=== PATIENT | female | born 1955 | race Caucasian/White ===

== ENCOUNTER 2025-05-26 10:28 | Observation (INO) ==
--- NOTE | 2025-05-26 10:55 | ED.PDOC ---
General HPI ED Provider: Dr. NORBERTO WAYNE MD Chief Complaint: Non-specific Complaint Stated Complaint: Patient accidentally injected 60 units of NovoLog instead of 10 units approximately 30 to 45 minutes ago, states she does feel little bit shaky and lightheaded but is awake alert. Blood sugar here in the ER is 158. Patient denies any severe chest pain, shortness of breath, sweating, abdominal pain, nausea, vomiting Time Seen by Provider: 05/26/25 10:45 Mode of Arrival: Walk-In Information Source: Patient Exam Limitations: No limitations Nursing and Triage Documentation Reviewed and Agree: Yes Opioid Naive vs. Tolerant Does Patient Take Opioids?: Yes Is Patient Opioid Naive?: No What is Opioid Naive?: *Opioid Naive implies the patient is not already taking opioids or not chronically receiving opioids on a daily basis. *PRN dosing is not "usually" associated with tolerance. *Patients are at higher risk of over-sedation and aspiration. Is Patient Opioid Tolerant?: Yes What is Opioid Tolerant?: *Opioid Tolerance implies less than the expected response to an opioid. *Acquired tolerance is defined by the patient taking 60mg of oral morphine daily (or equianalgesic dose of another opioid) for 1 week or more. *Often associated with chronic pain. *May take more than usual dose to achieve desired pain control. Review of Systems Review Of Systems Constitutional: Reports No symptoms PFSH PFS Medical History (Updated 05/26/25 @ 15:04 by SHERRY VENEGAS RN) Diabetes mellitus E11.9 - Type 2 diabetes mellitus without complications (ICD-10) Cancer Anal Cancer 2013 C80.1 - Malignant (primary) neoplasm, unspecified (ICD-10) Social History (Updated 05/26/25 @ 15:05 by SHERRY VENEGAS RN) Smoking and tobacco status: Current every day smoker Surgical History (Updated 05/26/25 @ 15:04 by SHERRY VENEGAS RN) History of appendectomy Z90.49 - Acquired absence of other specified parts of digestive tract (ICD- 10) Physical Exam Physical Exam Appearance: Reports Well-appearing Respiratory: Reports Airway patent Cardiovascular: Reports RRR GI/: Reports Soft and Nontender Musculoskeletal: Reports Normal strength Neurological: Reports Sensation intact, Motor intact, Alert and Oriented Physician Progress Note Physician Progress Note: Pt presented w/ accidental injecting 60 units of NovoLog instead of 10 units Nursing notes reviewed. Vital signs reviewed. Reviewed Past medical history as documented above as well as listed surgical, family, and social history. Medication list reviewed. IV + monitor + pulse ox ABCD's assessed and addressed as necessary DDx includes: Records reviewed: Independent historians used: Labs/imaging studies ordered/reviewed/significant findings: CBC unremarkable, BMP showed a potassium of 3.4, normal kidney function, glucose 39.6 Previous labs/imaging studies reviewed: Independent interpretation of tests ordered: Therapies prescribed: Response to therapies/Re-evaluation: Patient given 2 cups of orange juice, blood sugar rechecked at 1125 and was 154, stable from 158, will watch another hour and D/C if stable. 1225, patient slightly symptomatic feels a little agitated, anxious, shaky but is awake, alert, oriented, blood sugar was rechecked and less than 50. Will place an IV. Give 2 more cups of orange juice, dextrose tablets, food. Will give 1 mg of IV glucagon and 4 mg of Zofran. Discussed with poison control at 1230, case #[id number], recommend monitoring for 6 hours from accidental overdose, dextrose boluses to keep sugar above 100 and/or dextrose tablets. Patient feeling better at 1235 after getting orange juice. Lab glucose 37, recheck here was 77 at 1255, will give 5 tabs of dextrose and lunch. Recheck of sugar at 1315 was less than 50, patient was eating lunch, will give 1 amp of D50. With several hypoglycemic episodes, patient from out of town will observation overnight for continued glucose monitor management. Discussed with Maria Guadalupe Garcia at 1318 and she accepts observation admission Consultations Provider: Maria Guadalupe Garcia at 1318 accepts admission Consultations Non-Provider: Social determinants of health: Final Dx: Hypoglycemia secondary to unintentional short acting NovoLog overdose Disposition/Rx Discharged with: Observation admission Critical Care Note Critical Care Note Total Critical Care Time (mins): 45 Comments: Patient had acute impairment of nervous system with recurrent severe life- threatening hypoglycemic episodes, high probability of imminent, life- threatening deterioration unless acted upon, patient had multiple glucose measurements, dextrose tabs, amp of D50 given. Total critical care time was exclusive of separately billed procedures. Time was spent with the patient, multiple or examinations, reviewing labs, discussing with patient and , discussing with nursing staff, arranging for admission Course Course 05/26/25 12:29 05/26/25 12:29 Orders, Labs, Meds: Lab Review 05/26/25 12:29 WBC 9.70 RBC 4.95 Hgb 15.2 Hct 46.3 MCV 93.5 MCH 30.7 MCHC 32.8 RDW Coeff of Fernando 13.1 Plt Count 237 Immature Gran % (Auto) 0.2 Neut % (Auto) 59.3 Lymph % (Auto) 32.0 [place] % (Auto) 6.5 Eos % (Auto) 1.4 Baso % (Auto) 0.6 Neut # (Auto) 5.8 Lymph # (Auto) 3.1 [place] # (Auto) 0.6 Eos # (Auto) 0.1 Baso # (Auto) 0.1 Immature Gran # (Auto) 0.0 Sodium 139.8 Potassium 3.48 L Chloride 107.8 H Carbon Dioxide 27.5 Anion Gap 7.98 BUN 23.3 H Creatinine 0.87 Estimated GFR (MDRD) 65.00 BUN/Creatinine Ratio 26.78 Glucose 39.6 L* Calcium 9.71 Orders Category Date Time Status ADMIT OBSERVATION [PLACE PATIENT OBSERVATION] .TO ADMISSION 05/26/25 13:25 Active MEDSURG (MONITORED BED) TELEMETRY MONITORING TELE CARE 05/26/25 13:25 Active ED IV/MEDIPORT/POWERPORT .ONCE EMERGENCY 05/26/25 12:24 Active Glucose [ED ACCUCHECK ASSESSMENT] .ONCE EMERGENCY 05/26/25 10:47 Active Glucose [ED ACCUCHECK ASSESSMENT] .ONCE EMERGENCY 05/26/25 11:15 Active Glucose [ED ACCUCHECK ASSESSMENT] .ONCE EMERGENCY 05/26/25 12:30 Active Glucose [ED ACCUCHECK ASSESSMENT] .ONCE EMERGENCY 05/26/25 12:45 Active Glucose [ED ACCUCHECK ASSESSMENT] .ONCE EMERGENCY 05/26/25 13:15 Active Glucose [ED ACCUCHECK ASSESSMENT] .ONCE EMERGENCY 05/26/25 14:30 Active Monitor [ED SHELL ASSEMBLER APPLIED] .ONCE EMERGENCY 05/26/25 12:32 Active BMP [BASIC METABOLIC PANEL] Stat LAB 05/26/25 12:29 Completed CBC W/ AUTO DIFF Stat LAB 05/26/25 12:29 Completed 0.9 % Sodium Chloride [Saline Flush] Meds 05/26/25 12:23 Active 1 syr IVF PRN PRN Dextrose 50 % in Water [Dextrose 50%-Water Abboject] Meds 05/26/25 13:15 Discontinued 50 ml IVP ONCE ONE Dextrose [Glucose Chew Tab] Meds 05/26/25 12:21 Discontinued 5 tab PO ONCE STA Glucagon,Human Recombinant [Glucagen] Meds 05/26/25 12:26 Discontinued 1 mg IVP ONCE ONE Hydrocodone Bit/Acetaminophen [[place] 10-325] Meds 05/26/25 13:24 Discontinued 1 tab PO ONCE ONE Medications Generic Name Dose Route Start Last Admin Trade Name Vadim PRN Reason Stop Dose Admin Acetaminophen 650 mg 05/26/25 14:05 Acetaminophen 325 Mg Tablet PO Q4H PRN Mild Pain Hydrocodone Bitart/Acetaminophen 1 tab 05/26/25 21:00 Hydrocodone Bit/Acetaminophen 10/325 Mg Tablet PO TID RONA Dextrose 50 ml 05/26/25 14:05 Dextrose 50 % In Water 50 Ml Disp.Syrin IVP ONCE PRN Unconscious Hypoglycemia Protocol Methocarbamol 750 mg 05/26/25 17:00 Methocarbamol 500 Mg Tablet PO QID [facility] Nicotine 1 patch 05/26/25 15:10 Nicotine 14 Mg Patch.Td24 TD DAILY [facility] Ondansetron HCl 4 mg 05/26/25 14:05 Ondansetron Hcl/Pf 4 Mg/2 Ml Sdv IVP Q6H PRN Nausea / Vomiting Sodium Chloride 1 syr 05/26/25 12:23 0.9% Sodium Chloride 10 Ml Disp.Syrin IVF PRN PRN To flush IV Discontinued Medications Generic Name Dose Route Start Last Admin Trade Name Vadim PRN Reason Stop Dose Admin Hydrocodone Bitart/Acetaminophen 1 tab 05/26/25 13:24 05/26/25 14:10 Hydrocodone Bit/Acetaminophen 10/325 Mg Tablet PO 05/26/25 13:25 1 tab ONCE ONE Administration Dextrose 50 ml 05/26/25 13:15 05/26/25 13:21 Dextrose 50 % In Water 50 Ml Disp.Syrin IVP 05/26/25 13:16 50 ml ONCE ONE Administration Glucagon 1 mg 05/26/25 12:26 05/26/25 13:04 Glucagon,Human Recombinant 1 Mg Kit IVP 05/26/25 12:27 Not Given ONCE ONE Glucose 5 tab 05/26/25 12:21 05/26/25 13:01 Dextrose 4 Gm Tab.Chew PO 05/26/25 12:22 5 tab ONCE STA Administration Potassium Chloride 40 meq 05/26/25 15:10 Potassium Chloride 20 Meq Tab PO 05/26/25 15:11 ONCE ONE Vital Signs: Temp Pulse Resp BP Pulse Ox 05/26/25 10:35 96.8 F L 80 16 161/93 H 98 Discharge Plan Discharge Patient Disposition: PLACED OBSERVATION Discharge Problem: Hypoglycemia Did you review [place] INTERN ARCHITECT for ALL controlled substances?: No ED Provider: NORBERTO WAYNE Condition: Stable
[2025-05-26 12:33] LABS: IMMATURE GRANULOCYTE # (AUTO) 0.0 (0.0-1.0); IMMATURE GRANULOCYTE % (AUTO) 0.2 % (0.0-5.0); RDW COEFFICIENT OF VARIATION 13.1 % (11.6-14.8)
[2025-05-26 12:45] LABS: CREATININE 0.87 mg/dL (0.60-1.30)
[2025-05-26] MEDS: GLUCOSE CHEW TAB PO STA (13:01)
[2025-05-26] MEDS: GLUCAGEN IVP ONE (13:04)
[2025-05-26] MEDS: DEXTROSE 50%-WATER ABBOJECT IVP ONE (13:21)
[2025-05-26] MEDS ORDERED: ZOFRAN SDV IVP PRN (14:05)
[2025-05-26] MEDS ORDERED: TYLENOL PO PRN (14:05)
[2025-05-26] MEDS ORDERED: DEXTROSE 50%-WATER ABBOJECT IVP PRN (14:05)
[2025-05-26] MEDS: NORCO 10-325 PO ONE (14:10)
--- NOTE | 2025-05-26 14:15 | PCM ---
Date of Service Date Seen by Provider: 05/26/25 Time Seen by Provider: 14:00 Admit Day/Time Admission Date: 05/26/25 Admission Time: : Reason for Admission Chief Complaint: HYPOGLYCEMIA SECONDARY TO UNINTENTIONAL NOVOLOG Hospital Provider Hospital Provider: HARDIK SOMMERS PA-C, [facility] History of Present Illness History of Present Illness: Patient is a 69 year old female with a PMH of T2DM and chronic pain. She arrived to the ED due to hypoglycemia. At 10 am this morning she took 60 units of Novolog when she was supposed to take 10 units of Novolog and 60 of Lantus. She called her PCP who told her to come to the ER. She was initially not symptomatic and blood sugar was around 150. It then began to drop below 50 multiple times despite food intake and she became symptomatic with tremors and vision changes. She was given an amp of D50. Symptoms have since resolved and blood sugar is now stable. Since sugars kept dropping it is not safe for her to return home. Admitted for observation. Case Discussed With Case Discussed With: Patient's case was discussed with the ER Physicians, Dr. Shafer. [facility] Medical History Diabetes mellitus E11.9 - Type 2 diabetes mellitus without complications (ICD-10) Cancer Anal Cancer 2012 C80.1 - Malignant (primary) neoplasm, unspecified (ICD-10) Surgical History History of appendectomy Z90.49 - Acquired absence of other specified parts of digestive tract (ICD- 10) Social History Smoking and tobacco status: Current every day smoker Allergies Allergies Allergy/AdvReac Type Severity Reaction Status Date / Time adhesive Allergy Other Verified 05/26/25 11:33 aspirin Allergy Rash Verified 05/26/25 11:33 codeine Allergy Nausea Verified 05/26/25 11:33 hydromorphone (From Dilaudid) Allergy Anxiety Verified 05/26/25 11:33 Current Medications Home Medications Acetaminophen (Acetaminophen 325 Mg Tablet) 650 mg PO Q4H PRN PRN Reason: Mild Pain Hydrocodone Bitart/Acetaminophen (Hydrocodone Bit/Acetaminophen 10/325 Mg Tablet) 1 tab PO TID [facility] Last Admin: 05/27/25 08:22 Dose: 1 tab Dextrose (Dextrose 50 % In Water 50 Ml Disp.Syrin) 50 ml IVP ONCE PRN; Protocol PRN Reason: Unconscious Hypoglycemia Insulin Glargine (Insulin Glargine,Hum.Rec.Anlog 100 Units/Ml) 60 unit SUBCUT QAM [facility] Last Admin: 05/27/25 09:24 Dose: 60 unit Methocarbamol (Methocarbamol 500 Mg Tablet) 750 mg PO QID [facility] Last Admin: 05/27/25 08:21 Dose: 750 mg Nicotine (Nicotine 14 Mg Patch.Td24) 1 patch TD DAILY [facility] Last Admin: 05/27/25 08:22 Dose: 1 patch Ondansetron HCl (Ondansetron Hcl/Pf 4 Mg/2 Ml Sdv) 4 mg IVP Q6H PRN PRN Reason: Nausea / Vomiting Sodium Chloride (0.9% Sodium Chloride 10 Ml Disp.Syrin) 1 syr IVF PRN PRN PRN Reason: To flush IV hydrocodone 10 mg-acetaminophen 325 mg tablet 1 tab PO TID 05/26/25 [History Confirmed 05/26/25] insulin aspart U-100 100 unit/mL subcutaneous solution (Novolog U-100 Insulin aspart) 10 unit subcut TID 05/26/25 [History Confirmed 05/26/25] insulin glargine 100 unit/mL subcutaneous solution (Lantus U-100 Insulin) 60 unit subcut QAM 05/26/25 [History Confirmed 05/26/25] methocarbamol 750 mg tablet 750 mg PO QID 05/26/25 [History Confirmed 05/26/25] Opioid Naive vs. Tolerant Does Patient Take Opioids?: Yes Is Patient Opioid Naive?: No What is Opioid Naive?: *Opioid Naive implies the patient is not already taking opioids or not chronically receiving opioids on a daily basis. *PRN dosing is not "usually" associated with tolerance. *Patients are at higher risk of over-sedation and aspiration. Is Patient Opioid Tolerant?: No What is Opioid Tolerant?: *Opioid Tolerance implies less than the expected response to an opioid. *Acquired tolerance is defined by the patient taking 60mg of oral morphine daily (or equianalgesic dose of another opioid) for 1 week or more. *Often associated with chronic pain. *May take more than usual dose to achieve desired pain control. Review of Systems Constitutional: Denies Fever, Fatigue, Weakness or Sweats Head: Reports Normocephalic and Atraumatic Eyes: Reports Vision Changes Cardiovascular: Denies Chest pain, Chest Pressure or Irregular Heartbeat Respiratory: Denies Cough or Shortness of air Gastrointestinal: Denies Nausea, Vomiting, Diarrhea or Constipation Genitourinary: Denies Dysuria or Frequency Neurological: Reports Tremor; Denies Headache, Dizziness, Syncope, Loss of Conciousness, Seizure, Numbness or Weakness Physical examination Most Recent Vital Signs: Most Recent Vital Signs Temperature 96.8 F L 05/26/25 10:35 Temperature Source Temporal Artery Scan 05/26/25 10:35 Pulse Rate 80 05/26/25 10:35 Respiratory Rate 16 05/26/25 10:35 Blood Pressure 161/93 H 05/26/25 10:35 O2 Sat by Pulse Oximetry 98 05/26/25 10:35 Height 5 ft 6 in 05/26/25 10:35 Weight 66.6 kg 05/26/25 10:35 Appearance: Positive Well-appearing, Well-nourished, No Apparent Distress and Alert and Oriented x3 Skin: Positive [place] and Warm HEENT: Positive Normocephalic and Atraumatic Neck: Positive Supple Chest/Lungs: Positive Symmetrical With Equal Breath Sounds, Clear to Auscultation Bilaterally and Good Air Movement all 4 Lung [place]; Negative Rales, Rhonci or Wheezes Heart: Positive RRR; Negative Murmur, Irregular Rhythm, Tachycardia or Bracycardia GI/: Positive Soft, Nontender and Bowel Sounds Normal Neurological: Positive Sensation Intact, Motor intact, Cranial Nerves Intact, Alert and Oriented Psychiatric: Positive Oriented x4, Appropriate Mood, Appropriate Affect and Intact Memory Labs This Visit Labs This Visit: Labs This Visit 05/26/25 12:29 WBC 9.70 RBC 4.95 Hgb 15.2 Hct 46.3 MCV 93.5 MCH 30.7 MCHC 32.8 RDW Coeff of Fernando 13.1 Plt Count 237 Immature Gran % (Auto) 0.2 Neut % (Auto) 59.3 Lymph % (Auto) 32.0 [place] % (Auto) 6.5 Eos % (Auto) 1.4 Baso % (Auto) 0.6 Neut # (Auto) 5.8 Lymph # (Auto) 3.1 [place] # (Auto) 0.6 Eos # (Auto) 0.1 Baso # (Auto) 0.1 Immature Gran # (Auto) 0.0 Sodium 139.8 Potassium 3.48 L Chloride 107.8 H Carbon Dioxide 27.5 Anion Gap 7.98 BUN 23.3 H Creatinine 0.87 Estimated GFR (MDRD) 65.00 BUN/Creatinine Ratio 26.78 Glucose 39.6 L* Calcium 9.71 Review Statement Review Statement: I have independently reviewed and interpreted the labs/EKGs/imaging that were ordered by the ER provider. I have reviewed all outside records that are available currently in our EMR including imaging/notes/labs from previous visits. Plan Plan: 1. Hypoglycemia - Due to 60 units of Novolog. Monitor blood sugar q 1hr, amp of D50 ordered prn if blood sugar drops below 50. If continues to drop will add on D5 fluids. 2. Type 2 Diabetes Mellitus - Hold insulin 3. Chronic pain, unspecified - Continue home meds DVT Prophylaxis: Ambulation Time Spent: Greater than 80 minutes spent with patient, 50% of the time spent with this patient was devoted to counseling and coordination of care. [facility] Plannin minutes spent discussing advance care planning. Smoking Cessation: 3 minutes spent discussing smoking cessation. Admit to: Observation Discussed Plan of Care with Dr. Adrianna Tobin Medications Medication Orders: Medications Ordered Category Date Time Status 0.9 % Sodium Chloride [Saline Flush] Meds 05/26/25 12:23 Active 1 syr IVF PRN PRN Acetaminophen [Tylenol] Meds 05/26/25 14:05 Active 650 mg PO Q4H PRN Dextrose 50 % in Water [Dextrose 50%-Water Abboject] Meds 05/26/25 14:05 Active 50 ml IVP ONCE PRN Ondansetron HCl/Pf [Zofran Sdv] Meds 05/26/25 14:05 Active 4 mg IVP Q6H PRN
[2025-05-26 15:02] VITALS: BMI 23.8
[2025-05-26] MEDS ORDERED: NON-FORMULARY MEDICATION (Methocarbamol 750 mg tablet) PO SCH (15:10)
[2025-05-26] MEDS: NICODERM 14 MG TD SCH (15:31)
[2025-05-26] MEDS: K-DUR PO ONE (15:31)
[2025-05-26] MEDS: ROBAXIN PO SCH (15:41)
[2025-05-26] MEDS: NORCO 10-325 PO SCH (21:55)
[2025-05-27 05:22] VITALS: BP 139/81; PULSE 67; RESP 20; TEMP 97
[2025-05-27 05:34] LABS: IMMATURE GRANULOCYTE # (AUTO) 0.0 (0.0-1.0); IMMATURE GRANULOCYTE % (AUTO) 0.2 % (0.0-5.0); RDW COEFFICIENT OF VARIATION 13.1 % (11.6-14.8)
[2025-05-27 05:50] LABS: CREATININE 0.67 mg/dL (0.60-1.30)
[2025-05-27] MEDS: LANTUS SUBCUT SCH (09:24)
--- NOTE | 2025-05-27 10:36 | DCSUM ---
Admission Date Admission Date: 05/26/25 Discharge Date Discharge Date: 05/27/25 Admission Diagnosis Admission Diagnosis: 1. Hypoglycemia Discharge Diagnosis Discharge Diagnosis: 1. Hypoglycemia - Resolved 2. Type 2 Diabetes Mellitus - Chronic 3. Chronic pain, unspecified - Chronic Hospital Provider Hospital Provider[facility] Summary of History and Physical Summary of History and Physical: Patient is a 69 year old female with a PMH of T2DM and chronic pain. She arrived to the ED due to hypoglycemia. At 10 am this morning she took 60 units of Novolog when she was supposed to take 10 units of Novolog and 60 of Lantus. She called her PCP who told her to come to the ER. She was initially not symptomatic and blood sugar was around 150. It then began to drop below 50 multiple times despite food intake and she became symptomatic with tremors and vision changes. She was given an amp of D50. Symptoms have since resolved and blood sugar is now stable. Since sugars kept dropping it is not safe for her to return home. Admitted for observation Hospital Course Subjective: Overall patient had an uneventful hospital stay. She did not have any low blood sugar readings or any symptoms during observation. She did not have to receive another amp of D50 after transferring to observation. She has been advised to differentiate her NovoLog from Lantus at home to prevent this from occurring again. She recieved 60 units of Lantus this morning and blood sugar has remained stable. Appearance: Pleasant, No Apparent Distress, Alert and Well-appearing HEENT: MMM CVS: No Murmur Abdomen: Soft and Non-Tender Respiratory: No Dyspnea Extremities: No Edema Additional Findings: Is ambulatory in room Vital Signs: Most Recent Vital Signs Temperature 97.0 F L 05/27/25 05:21 Temperature Source Tympanic 05/27/25 05:21 Temperature Source Temporal Artery Scan 05/26/25 10:35 Pulse Rate 67 05/27/25 05:21 Respiratory Rate 20 05/27/25 05:21 Blood Pressure 139/81 05/27/25 05:21 Blood Pressure Mean 100 05/27/25 05:21 Blood Pressure Left Arm 141/77 05/26/25 14:46 Blood Pressure Location Left Arm 05/27/25 05:21 Blood Pressure Position Supine 05/27/25 05:21 O2 Sat by Pulse Oximetry 96 05/27/25 05:21 Oxygen Delivery Method Room Air 05/27/25 10:00 Height 5 ft 6 in 05/26/25 14:46 Weight 66.8 kg 05/26/25 14:46 Telemetry Type Remote Telemetry 05/27/25 07:00 Telemetry Monitoring Continues 05/27/25 07:00 Telemetry Heart Rate 64 05/27/25 07:00 EKG IN Interval 0.19 05/27/25 07:00 EKG QRS Interval 0.07 05/27/25 07:00 Telemetry Strip Reading NSR 05/27/25 07:00 Lab Results Last 24 Hours: 05/27/25 05/26/25 05:23 12:29 WBC 5.74 9.70 RBC 4.62 4.95 Hgb 14.2 15.2 Hct 44.5 46.3 MCV 96.3 93.5 MCH 30.7 30.7 MCHC 31.9 32.8 RDW Coeff of Fernando 13.1 13.1 Plt Count 195 237 Immature Gran % (Auto) 0.2 0.2 Neut % (Auto) 51.9 59.3 Lymph % (Auto) 36.2 32.0 [place] % (Auto) 7.8 6.5 Eos % (Auto) 3.0 1.4 Baso % (Auto) 0.9 0.6 Neut # (Auto) 3.0 5.8 Lymph # (Auto) 2.1 3.1 [place] # (Auto) 0.5 0.6 Eos # (Auto) 0.2 0.1 Baso # (Auto) 0.1 0.1 Immature Gran # (Auto) 0.0 0.0 Sodium 137.0 139.8 Potassium 4.35 3.48 L Chloride 107.2 H 107.8 H Carbon Dioxide 26.5 27.5 Anion Gap 7.65 7.98 BUN 24.2 H 23.3 H Creatinine 0.67 0.87 Estimated GFR (MDRD) 88.00 65.00 BUN/Creatinine Ratio 36.11 26.78 Glucose 163.8 H D 39.6 L* Calcium 8.95 9.71 Total Bilirubin 0.31 AST 18.3 ALT 19.8 Alkaline Phosphatase 83.1 Total Protein 6.10 L Albumin 3.77 Globulin 2.33 Albumin/Globulin Ratio 1.61 Discharge Instructions Discharge Planning: Discharge Planning > [address] Adrianna Tobin Discharge Medications: Medications at Discharge (Home Meds & RX) hydrocodone 10 mg-acetaminophen 325 mg tablet 1 tab PO TID 05/26/25 insulin aspart U-100 100 unit/mL subcutaneous solution (Novolog U-100 Insulin aspart) 10 unit subcut TID 05/26/25 insulin glargine 100 unit/mL subcutaneous solution (Lantus U-100 Insulin) 60 unit subcut QAM 05/26/25 methocarbamol 750 mg tablet 750 mg PO QID 05/26/25 Discharge Plan Discharge Discharge Orders: Discharge Patient (ONCE); Ordered 05/27/25 Ordered By: HARDIK SOMMERS Activity Restrictions/Additional Instructions: DISCHARGE TO HOME DX: HYPOGLYCEMIA BE CAREFUL WITH NOVOLOG VS LANTUS F/U WITH Primary Care Provider RETURN WITH WORSENING SYMPTOMS KEEP CARB SNACKS NEAR YOU Instructions: Hypoglycemia in a Person with Diabetes (DC) Care Plan Goals: Problem: Altered Blood Glucose Level Goal: Maintain blood glucose level Within Normal Limits Instructions: Diet as ordered Diet consult if indicated Monitor accucheck levels Monitor signs/symptoms of altered glucose Patient Disposition: HOME SELF-CARE Prescriptions: Continued hydrocodone-acetaminophen 10-325 mg tablet 1 tab PO TID methocarbamol 750 mg tablet 750 mg PO QID insulin glargine [Lantus U-100 Insulin] 100 unit/mL solution 60 unit subcut QAM insulin aspart U-100 [Novolog U-100 Insulin aspart] 100 unit/mL solution 10 unit subcut TID Did you review [place] PEDICAB DRIVER for ALL controlled substances?: Not Applicable Discussed opioids are addictive and Narcan is available by prescription or from pharmacy.: No Condition: Stable
== END 2025-05-27 11:50 | disposition home or self-care (01) ==
LOC: MEDSURG B 10:28 → ED 10:28 → MEDSURG B 15:03
PROVIDERS: ADMIT Hospitalist; ATTEND Physician Assistant
DX: Z51.81 Encounter for therapeutic drug level monitoring; Z79.899 Other long term (current) drug therapy; G89.29 Other chronic pain; Z79.4 Long term (current) use of insulin; T38.3X5A Adverse effect of insulin and oral hypoglycemic [antidiabetic] drugs, initial encounter; R42 Dizziness and giddiness; E11.649 Type 2 diabetes mellitus with hypoglycemia without coma; T38.3X1A Poisoning by insulin and oral hypoglycemic [antidiabetic] drugs, accidental (unintentional), initial encounter